=== PATIENT | male | born 1935 | race Caucasian/White ===

== ENCOUNTER 2016-12-20 05:11 | Observation (INO) | payer MEDICARE, OTHER ==
[2016-12-20] VITALS (9 sets, daily range): BP systolic 157–204; BP diastolic 61–118; PULSE 62–112; RESP 16–24; TEMP 97.7–98; O2SAT 93–100
[~2016-12-20] VITALS: Ht 170.2 cm; Wt 65.0 kg
[~2016-12-20 05:11] MED LIST: [UNRECOGNIZED DRUG - REMARK]
[2016-12-20] MEDS ORDERED: LISI2.5T3 PO (05:21)
[2016-12-20] MEDS ORDERED: SODIUM CHLORIDE 0.9% FLUSH 10 ML FLUSH IVF PRN (05:30)
[2016-12-20] MEDS ORDERED: MORPHINE SULFATE 4 MG/ML INJ IV PUSH ONE (05:30)
[2016-12-20] MEDS ORDERED: ONDANSETRON HCL 4 MG/2 ML VIAL IV PUSH ONE (05:30)
[2016-12-20 05:35] LABS: AUTOMATED NEUTROPHIL # 2.8 TH/MM3 (1.8-7.7); BASOPHIL # 0.1 TH/MM3 (0-0.2); EOSINOPHIL # 0.2 TH/MM3 (0-0.4); EOSINOPHIL % 4.2 % (0.0-4.0); HEMATOCRIT 37.7 % (39.0-51.0); HEMO FLAGS DIFF FINAL; LYMPHOCYTE # 1.8 TH/MM3 (1.0-4.8); MEAN CELL VOLUME 92.8 FL (80.0-100.0); MEAN CORPUSCULAR HEMOGLOBIN 32.5 PG (27.0-34.0); MONO % 13.3 % (0.0-8.0); NEUT % 49.5 % (16.0-70.0); PLATELET COUNT 217 TH/MM3 (150-450); RED BLOOD COUNT 4.06 MIL/MM3 (4.50-5.90); WHITE BLOOD COUNT 5.7 TH/MM3 (4.0-11.0)
--- NOTE | 2016-12-20 05:40 | PD ---
HPI Chief Complaint: Chest Pain Time Seen by Provider: 05:22 Travel History International Travel<30 days: No Contact w/Intl Traveler<30days: No Traveled to known affect area: No History of Present Illness HPI 81-year-old male came to the emergency room brought emergently by EMS with history of chest pain and shortness of breath. Patient was in moderate distress and not the best historian under the circumstances. As per EMS patient described his pain running all the way across his chest into the back. He was hypertensive. They gave him 2 baby aspirin's and a sublingual nitroglycerin. This did not relieve his pain. Concerned that there was a differential blood pressure on both upper extremities and with hypertension the concern was aortic dissection which made them come emergently. Patient confirmed with the chest pain and says that it's currently 9 out of 10. It's a discomfort that goes all the way across his chest and all the way across his back and down both arms. He said that he's been having weakness while ambulating and associated exertional dyspnea. Patient was hypertensive upon arrival with a blood pressure of 200/100. Oxygen saturation was 96% on room air. Patient does not have any history of coronary artery disease. He is on lisinopril for blood pressure only. [facility] Past Medical History Narrative Medical List of his past medical, surgical, social and family history is reviewed from the nursing note. Cancer: No Cardiovascular Problems: Yes COPD: Yes Diminished Hearing: No Endocrine: No Genitourinary: No Hypertension: Yes Immune Disorder: No Musculoskeletal: No Neurologic: No Reproductive: No Respiratory: Yes Tetanus Vaccination: Unknown Influenza Vaccination: Yes Past Surgical History Abdominal Aneurysm Repair: Yes Abdominal Surgery: Yes (ANEURYSM REPAIR) Pacemaker: No Other Surgery: Yes (FEM-POP) Social History Alcohol Use: Yes (2 DRINKS PER DAY) Tobacco Use: Yes (1 PPD) Substance Use: No Allergies-Medications (Allergen,Severity, Reaction): Coded Allergies: No Known Allergies (Unverified , 12/20/16) Comments No known drug allergies. Reported Meds & Prescriptions Reported Meds & Active Scripts Active Reported Lisinopril 10 Mg Tab 10 Mg PO DAILY Narrative Medication List of his home medications reviewed from the nursing note. Review of Systems Except as stated in HPI: all other systems reviewed are Neg Cardiovascular: Positive: Chest Pain or Discomfort, Dyspnea on exertion Physical Exam Narrative GENERAL: Awake, alert, moderate distress, elderly, frail SKIN: Focused skin assessment warm/dry. HEAD: Atraumatic. Normocephalic. EYES: Pupils equal and round. No scleral icterus. No injection or drainage. ENT: No nasal bleeding or discharge. Mucous membranes pink and moist. NECK: Trachea midline. No JVD. CARDIOVASCULAR: Regular rate and rhythm. No murmur appreciated. RESPIRATORY: No accessory muscle use. Diminished air entry bilaterally with fine crackles GASTROINTESTINAL: Abdomen soft, non-tender, nondistended. Hepatic and splenic margins not palpable. MUSCULOSKELETAL: No obvious deformities. No clubbing. No cyanosis. No edema. NEUROLOGICAL: Awake and alert. No obvious cranial nerve deficits. Motor grossly within normal limits. Normal speech. PSYCHIATRIC: Appropriate mood and affect; insight and judgment normal. Data Data Last Documented VS Orders Orders Electrocardiogram (12/20/16 05:22) Basic Metabolic Panel (Bmp) (12/20/16 05:22) Ckmb (Isoenzyme) Profile (12/20/16 05:22) Complete Blood Count With Diff (12/20/16 05:22) Magnesium (Mg) (12/20/16 05:22) Prothrombin Time / Inr (Pt) (12/20/16 05:22) Act Partial Throm Time (Ptt) (12/20/16 05:22) Troponin I (12/20/16 05:22) Chest, Single Ap (12/20/16 05:22) Ecg Monitoring (12/20/16 05:22) Bilateral Bp Monitoring (12/20/16 05:22) Iv Access Insert/Monitor (12/20/16 05:22) Oximetry (12/20/16 05:22) Oxygen Administration (12/20/16 05:22) Morphine Inj (Morphine Inj) (12/20/16 05:30) Sodium Chloride 0.9% Flush (Ns Flush) (12/20/16 05:30) Cta Thor Abd Aorta W Iv C W3d (12/20/16 05:22) Ondansetron Inj (Zofran Inj) (12/20/16 05:30) Albuterol-Ipratropium Neb (Duoneb Neb) (12/20/16 05:45) Methylprednisolone So Succ Inj (Solumedr (12/20/16 06:15) Iohexol 350 Inj (Omnipaque 350 Inj) (12/20/16 06:33) Admit Order (Ed Use Only) (12/20/16 07:13) Labs Laboratory Tests Test 12/20/16 05:30 White Blood Count 5.7 TH/MM3 Red Blood Count 4.06 MIL/MM3 Hemoglobin 13.2 GM/DL Hematocrit 37.7 % Mean Corpuscular Volume 92.8 FL Mean Corpuscular Hemoglobin 32.5 PG Mean Corpuscular Hemoglobin Concent 35.0 % Red Cell Distribution Width 14.0 % Platelet Count 217 TH/MM3 Mean Platelet Volume 8.0 FL Neutrophils (%) (Auto) 49.5 % Lymphocytes (%) (Auto) 32.0 % Monocytes (%) (Auto) 13.3 % Eosinophils (%) (Auto) 4.2 % Basophils (%) (Auto) 1.0 % Neutrophils # (Auto) 2.8 TH/MM3 Lymphocytes # (Auto) 1.8 TH/MM3 Monocytes # (Auto) 0.8 TH/MM3 Eosinophils # (Auto) 0.2 TH/MM3 Basophils # (Auto) 0.1 TH/MM3 CBC Comment DIFF FINAL Differential Comment Prothrombin Time 10.1 SEC Prothromb Time International Ratio 0.9 RATIO Activated Partial Thromboplast Time 23.3 SEC Blood Urea Nitrogen 22 MG/DL Creatinine 1.08 MG/DL Random Glucose 87 MG/DL Calcium Level 9.4 MG/DL Magnesium Level 1.8 MG/DL Sodium Level 136 MEQ/L Potassium Level 4.2 MEQ/L Chloride Level 105 MEQ/L Carbon Dioxide Level 24.1 MEQ/L Anion Gap 7 MEQ/L Estimat Glomerular Filtration Rate 65 ML/MIN Total Creatine Kinase 36 U/L Troponin I 0.02 NG/ML [facility] Medical Decision Making Medical Screen Exam Complete: Yes Emergency Medical Condition: Yes Medical Record Reviewed: Yes Interpretation(s) Twelve-lead EKG was reviewed by me. Normal sinus rhythm, normal axis, peaked T waves. Heart rate of 77 bpm. Differential Diagnosis ACS, non-STEMI, congestive heart failure, COPD exacerbation, aortic dissection Narrative Course 6:02 AM patient was given IV morphine for the pain by me. Chest x-ray was read as hyperinflation. Patient does have history of COPD and I gave him 3 duo nebs. I'll give him IV Solu-Medrol as well. CBC is within normal limit. Awaiting for the chemistry and troponin. I've ordered a CT aortogram to rule out dissection. 6:48 AM blood test results are back and within acceptable limit. Awaiting for the CT aortogram to be done and resulted. 7:[address] aortogram and was negative for any dissection. I have admitted the patient to the chest pain center at this point. Blood pressure and chest pain is significantly improved at this point. Procedures EKG Prior to Arrival: Yes Diagnosis Primary Impression: Chest pain Qualified Codes: R07.9 - Chest pain, unspecified Additional Impression: COPD exacerbation Admitting Information Admitting Physician Requests: Observation Enma Levi MD Dec 20, 2016 05:40
--- NOTE | 2016-12-20 05:42 | RADRPT ---
EXAM DATE/TIME: 12/20/2016 05:28 [facility] COMPARISON: No previous studies available for comparison. INDICATIONS : Shortness of breath. MEDICAL HISTORY : Chronic obstructive pulmonary disease. SURGICAL HISTORY : None. ENCOUNTER: Initial ACUITY: 1 day PAIN SCORE: 0/10 LOCATION: Bilateral chest FINDINGS: A single view of the chest demonstrates hyperinflation which can be seen with COPD. No infiltrates a re seen. Heart is normal in size. Mild prominence of left hilum. Blunting of the left costophrenic a ngle. The mediastinal contours are unremarkable. Osseous structures are intact. CONCLUSION: Hyperinflation which can be seen with COPD. Mild prominence of left hilum. Pleural thickening versus small left pleural effusion. CT chest recommended. Des Corrigan MD on December 20, 2016 at 5:39 Board Certified Radiologist. This report was verified electronically.
[2016-12-20 05:46] LABS: APTT (PATIENT) 23.3 SEC (24.3-30.1); INTERNATIONAL NORMALIZED RATIO 0.9 RATIO; PROTHROMBIN TIME - PATIENT 10.1 SEC (9.8-11.6)
[2016-12-20] MEDS: RESP: ALBUTEROL 2.5 MG/IPRATROPIUM 0.5 MG NEB (SCH) INH ×2 (05:50→05:51)
[2016-12-20 06:03] LABS: BICARBONATE 24.1 MEQ/L (21.0-32.0); MAGNESIUM 1.8 MG/DL (1.5-2.5); POTASSIUM 4.2 MEQ/L (3.5-5.1)
[2016-12-20] MEDS ORDERED: methylPREDNISolone SOD SUCC 125 MG/2 ML VIAL IV PUSH ONE (06:15)
[2016-12-20] MEDS ORDERED: IOHEXOL 350 MG/ML 10 ML VIAL (for RAD DIAG) IVCONTRAST ONE (06:33)
--- NOTE | 2016-12-20 07:01 | RADRPT ---
EXAM DATE/TIME: 12/20/2016 06:19 [facility] COMPARISON: CTA ABDOMEN & PELVIS W 3D RECON, January 18, 2013, 21:45. INDICATIONS : Chest pain and shortness of breath. IV CONTRAST: 98 cc Omnipaque 350 (iohexol) IV RADIATION DOSE: 4.35 CTDIvol (mGy) MEDICAL HISTORY : Aneurysm, abdominal. Hypertension. Chronic obstructive pulmonary disease. SURGICAL HISTORY : Abdominal aortic aneurysm repair. ENCOUNTER: Initial ACUITY: 1 day PAIN SCALE: 8/10 LOCATION: chest TECHNIQUE: Volumetric scanning was performed using a multi-row detector CT scanner. The data was post processed with a variety of visualization algorithms including full volume maximum intensity projection, multi -planar sliding thin slab reformation, curved planar reformation, and surface rendering techniques. Using automated exposure control and adjustment of the mA and/or kV according to patient size, radiat ion dose was kept as low as reasonably achievable to obtain optimal diagnostic quality images. DICOM format image data is available electronically for review and comparison. FINDINGS: LUNGS: Severe centrilobular and paraseptal emphysema. There is no consolidation or pneumothorax. No concern ing pulmonary nodule is visualized. No pleural fluid is present. Calcified pleural plaques. MEDIASTINUM: No abnormally enlarged lymph nodes by CT criteria. No axillary or hilar abnormalities are identified. ABDOMEN: The liver and spleen are free of focal defects. The pancreas demonstrate no abnormality. The adrenal glands are normal. The kidneys demonstrate no evidence of solid renal mass or hydronephrosis. No free fluid or abdominal masses are identified. No para-aortic adenopathy is seen. Diverticulosis of the c olon. Cholecystectomy. PELVIS: No evidence of free fluid or pelvic mass. No abnormally enlarged inguinal or retroperitoneal lymph no alton are present. The bladder is unremarkable. THORACIC AORTA: The thoracic aortic root is normal with normal branching of the great vessels. There is no evidence of aneurysm or dissection. There is extensive atherosclerotic changes are noted involving the descend ing thoracic aorta. ABDOMINAL AORTA: Diffuse atherosclerotic changes. No dissection. Evidence of previous aneurysm repair with aortobifemo ral graft. No residual aneurysm. Type I endograft leaks. The renal arteries are patent bilaterally. The proximal celiac and superior mesenteric arteries are patent and normal in diameter. PELVIC VESSELS: The internal iliac and external iliac vessels are patent without aneurysm or stenosis. CONCLUSION: 1. Atherosclerotic changes of the thoracic aorta without aneurysm or dissection. 2. Aortobifemoral bypass graft with type 1endograft leaks but no residual aneurysm. 3. Severe emphysema and calcified pleural plaques. 4. Diverticulosis of the colon. Cholecystectomy. 5. No hilar or mediastinal adenopathy. Des Corrigan MD on December 20, 2016 at 6:51 Board Certified Radiologist. This report was verified electronically.
[2016-12-20] MEDS ORDERED: NITROGLYCERIN 0.4 MG SL 25 TABS/BTL SL PRN (08:30)
[2016-12-20] MEDS ORDERED: ONDANSETRON HCL 4 MG/2 ML VIAL IV PUSH PRN (08:30)
[2016-12-20] MEDS ORDERED: ACETAMINOPHEN 500 MG CPLT PO PRN (08:30)
[2016-12-20] MEDS ORDERED: ASPIRIN 325 MG TAB PO SCH (09:00)
[2016-12-20] MEDS ORDERED: SODIUM CHLORIDE 0.9% FLUSH 10 ML FLUSH IV FLUSH SCH (09:00)
[2016-12-20] MEDS ORDERED: amLODIPine BESYLATE 5 MG TAB PO ONE (09:45)
--- NOTE | 2016-12-20 09:45 | HHI.HP ---
HPI Primary Care Physician Jack Phipps MD Chief Complaint Chest pain History of Present Illness 81-year-old male with history of hypertension, COPD, peripheral vascular disease , and continues to smoke presents to emergency room for further evaluation of chest pain. Onset upon awakening, progressively becoming worse. Location pain begins in midabdomen area with radiation around abdomen and radiates up chest, back, and bilateral arms. Characterized as a "vice." No associated symptoms on nausea, vomiting, diaphoresis, or dyspnea. No known precipitating or relieving factors. Denies similar pain in the past. Also endorses weakness in his legs since , becomes weak after ambulating approximately 50 feet. States working in the yard lately picking up leaves for 2 days straight prior to chest discomfort began, however he does not feel like he over worked himself. Review of Systems General: No fatigue,weakness, fever, chills, or recent illness. CV: As stated above. No current chest pain or pressure. RESP: History of COPD, lifelong smoker, continues to smoke, no change in normal sputum production. No hemoptysis. GI: No nausea, vomiting, or bowel changes. No unintentional weight gain or weight loss : No dysuria EXT: Exertional Weakness bilateral legs and , No lower leg edema, no paraesthesias MS: No discomfort, change in ROM, injury, trauma, recent fall. Endorses current difficulty with balance due to weakness. 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, hypertension Past Surgical History Only cystectomy, femoropopliteal bypass Reported Medications Reported Meds & Active Scripts Active Reported Lisinopril 2.5 Mg Tab 2.5 Mg PO DAILY Active Ordered Medications Current Medications Medications (Trade) Dose Ordered Sig/Rambo Route Start Time Stop Time Status Last Admin (NS Flush) 2 ml UNSCH PRN IVF 12/20/16 05:30 12/20/16 05:38 (NS Flush) 2 ml BID IV FLUSH 12/20/16 09:00 12/20/16 08:50 (Tylenol) 500 mg Q4H PRN PO 12/20/16 08:30 (Zofran Inj) 4 mg Q6H PRN IV PUSH 12/20/16 08:30 (Nitrostat Sl) 0.4 mg Q5M PRN SL 12/20/16 08:30 (Aspirin) 325 mg DAILY PO 12/20/16 09:00 Social History Known hypertension and peripheral vascular disease. No known diabetes or hyperlipidemia. Lifelong smoker, reporting 70 years. One pack daily. Denies any alcohol or illegal drug use. , lives with . States he is able to perform all ADLs and continue shopping. Past cardiac testing. Nuclear exercise stress test 10 years ago reported to be unremarkable. Physical Exam Vital Signs Vital Signs Date Time Temp Pulse Resp B/P (MAP) Pulse Ox O2 Delivery O2 Flow Rate FiO2 12/20/16 09:35 97.8 82 24 199/79 (119) 93 12/20/16 08:54 12/20/16 08:51 66 16 157/71 (99) 98 Nasal Cannula 2.00 12/20/16 08:28 96 Nasal Cannula 2.00 12/20/16 07:42 77 16 157/61 (93) 99 Nasal Cannula 2.00 12/20/16 07:10 20 12/20/16 06:07 69 16 170/80 (110) 96 Nasal Cannula 2.00 12/20/16 05:33 98 Nasal Cannula 2.00 12/20/16 05:33 200/90 (126) 204/118 (146) 12/20/16 05:33 20 96 Nasal Cannula 2.00 12/20/16 05:15 82 24 98 Room Air 12/20/16 05:13 98.0 112 24 200/90 (126) 98 Physical Exam GENERAL: Alert thin, frail, NAD, pleasant, elderly male CV: RRR, without murmur, rub, gallop, no JVD, S1-S2 no S3-S4. No carotid bruits. RESP: Severely diminished lungs throughout bilateral, no crackles, wheeze, rhonchi, symmetrical chest rise, nonlabored, able to speak in full sentences ABD: Soft, NT, ND, no masses EXT: Pulses +14, no dependent edema, varicosities lower extremitas MS: Normal tone 4 extremities, nontender, no obvious deformities, full range of motion NEURO: CN II through CN XII grossly intact, motor strength 5/5 PSYCH: A+O 3, pleasant affect, appropriate speech, appropriate mood and affect , insight and judgment SKIN: Normal turgor, normal texture, dry, thin, no lesions, no rashes, sluggish cap refill Laboratory Laboratory Tests Test 12/20/16 05:30 12/20/16 08:45 White Blood Count 5.7 Red Blood Count 4.06 Hemoglobin 13.2 Hematocrit 37.7 Mean Corpuscular Volume 92.8 Mean Corpuscular Hemoglobin 32.5 Mean Corpuscular Hemoglobin Concent 35.0 Red Cell Distribution Width 14.0 Platelet Count 217 Mean Platelet Volume 8.0 Neutrophils (%) (Auto) 49.5 Lymphocytes (%) (Auto) 32.0 Monocytes (%) (Auto) 13.3 Eosinophils (%) (Auto) 4.2 Basophils (%) (Auto) 1.0 Neutrophils # (Auto) 2.8 Lymphocytes # (Auto) 1.8 Monocytes # (Auto) 0.8 Eosinophils # (Auto) 0.2 Basophils # (Auto) 0.1 CBC Comment DIFF FINAL Differential Comment Prothrombin Time 10.1 Prothromb Time International Ratio 0.9 Activated Partial Thromboplast Time 23.3 Blood Urea Nitrogen 22 Creatinine 1.08 Random Glucose 87 Calcium Level 9.4 Magnesium Level 1.8 Sodium Level 136 Potassium Level 4.2 Chloride Level 105 Carbon Dioxide Level 24.1 Anion Gap 7 Estimat Glomerular Filtration Rate 65 Total Creatine Kinase 36 29 Troponin I 0.02 0.03 Result Diagram: 12/20/1652912/20/16529 Imaging Last Impressions Chest X-Ray 12/20/16521 Signed Impressions: Service Date/Time: Tuesday, December 20, 2016 05:28 - CONCLUSION: Hyperinflation which can be seen with COPD. Mild prominence of left hilum. Pleural thickening versus small left pleural effusion. CT chest recommended. Des Corrigan MD Aorta CTA 12/20/16521 Signed Impressions: Service Date/Time: Tuesday, December 20, 2016 06:19 - CONCLUSION: 1. Atherosclerotic changes of the thoracic aorta without aneurysm or dissection. 2. Aortobifemoral bypass graft with type 1endograft leaks but no residual aneurysm. 3. Severe emphysema and calcified pleural plaques. 4. Diverticulosis of the colon. Cholecystectomy. 5. No hilar or mediastinal adenopathy. Des Corrigan MD Course EKG Sinus rhythm, normal axis, no ST or T-segment changes Caprini VTE Risk Assessment Caprini VTE Risk Assessment: Mod/High Risk (score >= 2) Caprini Risk Assessment Model Point Value = 1 Point Value = 2 Point Value = 3 Point Value = 5 Age 41-60 Minor surgery BMI > 25 kg/m2 Swollen legs Varicose veins or History of unexplained or recurrent spontaneous Oral contraceptives or hormone replacement Sepsis (< 1 month) Serious lung disease, including pneumonia (< 1 month) Abnormal pulmonary function Acute myocardial infarction Congestive heart failure (< 1 month) History of inflammatory bowel disease Medical patient at bed rest Age 61-74 Arthroscopic surgery Major open surgery (> 45 min) Laparoscopic surgery (> 45 min) Malignancy Confined to bed (> 72 hours) Immobilizing plaster cast Central venous access Age >= 75 History of VTE Family history of VTE Factor V Leiden Prothrombin [id number] Lupus anticoagulant Anticardiolipin antibodies Elevated serum homocysteine Heparin-induced thrombocytopenia Other congenital or acquired thrombophilia Stroke (< 1 month) Elective arthroplasty Hip, pelvis, or leg fracture Acute spinal cord injury (< 1 month) Prophylaxis Regimen Total Risk Factor Score Risk Level Prophylaxis Regimen 0-1 Low Early ambulation 2 Moderate Order ONE of the following: *Sequential Compression Device (SCD) *Heparin 5000 units SQ BID 3-4 Higher Order ONE of the following medications: *Heparin 5000 units SQ TID *Enoxaparin/Lovenox 40 mg SQ daily (WT < 150 kg, CrCl > 30 mL/min) *Enoxaparin/Lovenox 30 mg SQ daily (WT < 150 kg, CrCl > 10-29 mL/min) *Enoxaparin/Lovenox 30 mg SQ BID (WT < 150 kg, CrCl > 30 mL/min) AND/OR *Sequential Compression Device (SCD) 5 or more Highest Order ONE of the following medications: *Heparin 5000 units SQ TID (Preferred with Epidurals) *Enoxaparin/Lovenox 40 mg SQ daily (WT < 150 kg, CrCl > 30 mL/min) *Enoxaparin/Lovenox 30 mg SQ daily (WT < 150 kg, CrCl > 10-29 mL/min) *Enoxaparin/Lovenox 30 mg SQ BID (WT < 150 kg, CrCl > 30 mL/min) AND *Sequential Compression Device (SCD) Assessment and Plan Assessment and Plan #1 Chest pain-admitted to chest pain center. Ruled out with 3 sets of EKGs and cardiac enzymes. Once ruled out will proceed with chemical stress test. Seen and evaluated by Dr. Justion Treadwell. #2 Tobacco use-strongly encouraged stress importance of tobacco cessation. Instructed to quit smoking. #3 Hypertension-continue lisinopril #4 COPD-keep SPO2 greater than 92%, albuterol every 2 hours when necessary, continue home inhalers. Karissa Crawley Dec 20, 2016 09:45
[2016-12-20] MEDS ORDERED: REGADENOSON INJ 0.4 MG/5 ML SYR ONE (15:21)
--- NOTE | 2016-12-20 16:16 | EKG ---
Date Performed: 12/20/2016 Time Performed: 08:36:39 PTAGE: 81 years EKG: Sinus rhythm NORMAL ECG PREVIOUS TRACING : 12/20/2016 05.15 Since previous tracing, no significant change noted DOCTOR: Justino Treadwell Interpretating Date/Time 12/20/2016 16:14:19
--- NOTE | 2016-12-20 16:17 | TR ---
Date Performed: 12/20/2016 Time Performed: 15:29:42 DOCTOR: Justino Treadwell DRUG LIST: CLINICAL HISTORY: CHEST PAIN REASON FOR TEST: CHEST PAIN REASON FOR ENDING: OBSERVATION: CONCLUSION: Lexiscan stress test was performed under standard four minute protocol. Radionuclid e was injected one minute prior to ending the test. No electrocardiographic abormalities were present to suggest ischemia. Nuclear imaging and interpretation are pending. COMMENTS:
--- NOTE | 2016-12-20 16:52 | RADRPT ---
EXAM DATE/TIME: 12/20/2016 14:24 [facility] COMPARISON: No previous studies available for comparison. INDICATIONS : Bilateral chest pain with dyspnea. Angina. DOSE: 25.4 mCi Tc99m Myoview at stress. 8.5 mCi Tc99m Myoview at rest. 0.4 mg Lexiscan STRESS SYMPTOMS: Asymptomatic. EJECTION FRACTION: 57% MEDICAL HISTORY : Hypertension. Chronic obstructive pulmonary disease. Smoker. SURGICAL HISTORY : Abdominal aortic aneurysm repair. ENCOUNTER: Initial ACUITY: 1 day PAIN SCALE: 9/10 LOCATION: Bilateral chest TECHNIQUE: The patient underwent pharmacologic stress with infusion of prescribed dose. Continuous ECG tracing was monitored during stress. Gated SPECT imaging was performed after stress and conventional SPECT i maging was performed at rest. The examination was performed on a SPECT/CT scanner, both attenuation and non-corrected datasets were reviewed. FINDINGS: DISTRIBUTION: The maximum perfused segment at stress is in the septal wall. PERFUSION STUDY: The pattern of perfusion at stress is within normal limits, with regional variations within 25%. No evidence of redistribution.. GATED STUDY: There is intact wall motion and thickening without hypokinetic or dyskinetic segments. CONCLUSION: 1. No evidence of stress-induced ischemia. 2. Intact wall motion was 57% ejection fraction. RISK CATEGORY: Low (<1% Annual Mortality Rate) Yang Wiggins MD on December 20, 2016 at 16:28 Board Certified Radiologist. This report was verified electronically.
--- NOTE | 2016-12-20 17:18 | HHI.DCPOC ---
Discharge Care Plan Diagnosis: (1) Musculoskeletal chest pain (2) Hypertension Goals to Promote Your Health * To prevent worsening of your condition and complications * To maintain your health at the optimal level Directions to Meet Your Goals Take your medications as prescribed Follow your dietary instruction Follow activity as directed Keep your appointments as scheduled Take your immunizations and boosters as scheduled If your symptoms worsen call your PCP, if no PCP go to Urgent Care Center or Emergency Room Smoking is Dangerous to Your Health. Avoid second hand smoke Call the 24-hour hour crisis hotline for domestic abuse at Karissa Crawley Dec 20, 2016 17:18
[2016-12-20] MEDS ORDERED: LISI10TA3 PO (17:38)
[2016-12-20] MEDS ORDERED: KETOROLAC TROMETHAMINE 30 MG/ML (IVP) VIAL IV PUSH ONE (17:45)
--- NOTE | 2016-12-20 21:14 | EKG ---
Date Performed: 12/20/2016 Time Performed: 05:15:56 PTAGE: 81 years EKG: Sinus rhythm NORMAL ECG PREVIOUS TRACING : 01/19/2013 17.18 Compared to prior tracing no significant change DOCTOR: Peewee Manuel Interpretating Date/Time 12/20/2016 21:13:30
--- NOTE | 2016-12-23 13:03 | EKG ---
Date Performed: 12/20/2016 Time Performed: 11:50:33 PTAGE: 81 years EKG: Sinus rhythm POSSIBLE INFERIOR MYOCARDIAL INFARCTION BORDERLINE ECG NO SIG CHANGE NO PREVIOUS TRACING DOCTOR: Trey Romano Interpretating Date/Time 12/23/2016 13:02:45
== END 2016-12-20 19:33 | disposition home or self-care (01) ==
LOC: NEPE 05:11 → NEDA 07:14 → NEPFCDU 09:12
PROVIDERS: ADMIT Internal Medicine Cardiovascular Disease; ATTEND Internal Medicine Cardiovascular Disease
DX: R07.89 Other chest pain (principal); J44.1 Chronic obstructive pulmonary disease with (acute) exacerbation; I10 Essential (primary) hypertension; R06.02 Shortness of breath; R53.1 Weakness; F17.210 Nicotine dependence, cigarettes, uncomplicated; Z79.899 Other long term (current) drug therapy
CPT/HCPCS: 71010; 71275; 74174; 78452; 80048; 82550; 83735; 84484; 85025; 85610; 85730; 93005; 93017; 94640; 94664; 96374; 96375; 99285; A9502; G0378; J2270; J2405; J2785; J2930; Q9967